=== PATIENT | female | born 1980 | race Caucasian/White ===

== ENCOUNTER 2017-04-29 07:20 | Emergency (ER) | payer BC, MEDICAID ==
[~2017-04-29] VITALS: Ht 160 cm; Wt 159.0 kg
[~2017-04-29 07:20] MED LIST: Z.0.NO CURRENT MEDS
[2017-04-29 07:21] VITALS: BP 147/76; PULSE 86; RESP 16; TEMP 97.7; O2SAT 98
[2017-04-29] MEDS ORDERED: SODIUM CHLOR 0.9% 1000 ML INJ 1,000 ML IV SCH (07:32)
--- NOTE | 2017-04-29 07:38 | PD ---
HPI Chief Complaint: Flank/Kidney Pain Time Seen by Provider: 07:28 Travel History International Travel<30 days: No Contact w/Intl Traveler<30days: No Traveled to known affect area: No History of Present Illness HPI 37 years old female complains of left flank pain and left-sided abdominal pain. Patient states that the symptoms started 4 days ago. Patient states the pain has been intermittent however worse this morning. Patient states that the pain is cramping pain and sharp pain started on the left flank area with radiation to left side abdomen. Patient denies any nausea vomiting. Patient denies any diarrhea. Patient denies any dysuria. Patient has urinary frequency. Patient denies any vaginal discharge or bleeding. Patient status post tubal ligation. On a scale of 1-10 the pain is an 8. Patient denies any history kidney stone in the past. Patient has history of ovarian cysts. PFSH Past Medical History Diminished Hearing: No ?: Not LMP: MAR 2017 Tubal Ligation: Yes Past Surgical History Section: Yes Social History Alcohol Use: No Tobacco Use: No Substance Use: No Allergies-Medications (Allergen,Severity, Reaction): Coded Allergies: No Known Allergies (Verified Allergy, Unknown, 04/29/17) Reported Meds & Prescriptions Reported Meds & Active Scripts Active No Active Prescriptions or Reported Medications Review of Systems General / Constitutional: No: Fever Eyes: No: Visual changes HENT: No: Headaches Cardiovascular: No: Chest Pain or Discomfort Respiratory: No: Shortness of Breath Gastrointestinal: Positive: Abdominal Pain Genitourinary: No: Dysuria Musculoskeletal: No: Pain Skin: No Rash Neurologic: No: Weakness Psychiatric: No: Depression Endocrine: No: Polydipsia Hematologic/Lymphatic: No: Easy Bruising Physical Exam Narrative GENERAL: Well-nourished, well-developed patient. SKIN: Focused skin assessment warm/dry. HEAD: Normocephalic. EYES: No scleral icterus. No injection or drainage. NECK: Supple, trachea midline. No JVD or lymphadenopathy. CARDIOVASCULAR: Regular rate and rhythm without murmurs, gallops, or rubs. RESPIRATORY: Breath sounds equal bilaterally. No accessory muscle use. GASTROINTESTINAL: Abdomen soft, nondistended. Moderate tenderness on palpation left flank area left side abdomen. No rebound tenderness. No mass. MUSCULOSKELETAL: No cyanosis, or edema. BACK: Nontender without obvious deformity. No CVA tenderness. Neurologic exam normal. Data Data Last Documented VS Vital Signs Date Time Temp Pulse Resp B/P (MAP) Pulse Ox O2 Delivery O2 Flow Rate FiO2 04/29/17 07:21 97.7 86 16 147/76 (99) 98 Orders Orders Complete Blood Count With Diff (04/29/17 07:32) Comprehensive Metabolic Panel (04/29/17 07:32) Urinalysis - C+S If Indicated (04/29/17 07:32) Ct Abd/Pel W/O Iv Contrast (04/29/17 07:32) Iv Access Insert/Monitor (04/29/17 07:32) Ecg Monitoring (04/29/17 07:32) Oximetry (04/29/17 07:32) Morphine Inj (Morphine Inj) (04/29/17 07:45) Ondansetron Inj (Zofran Inj) (04/29/17 07:45) Sodium Chlor 0.9% 1000 Ml Inj (Ns 1000 M (04/29/17 07:32) Sodium Chloride 0.9% Flush (Ns Flush) (04/29/17 07:45) Morphine Inj (Morphine Inj) (04/29/17 08:30) Ketorolac Inj (Toradol Inj) (04/29/17 08:30) Ed Discharge Order (04/29/17 08:19) Labs Laboratory Tests Test 04/29/17 07:10 04/29/17 07:42 Urine Color YELLOW Urine Turbidity CLEAR Urine pH 6.0 Urine Specific [place] 1.029 Urine Protein TRACE mg/dL Urine Glucose (UA) NEG mg/dL Urine Ketones NEG mg/dL Urine Occult Blood TRACE Urine Nitrite NEG Urine Bilirubin NEG Urine Urobilinogen LESS THAN 2.0 MG/DL Urine Leukocyte Esterase NEG Urine RBC 1 /hpf Urine WBC 1 /hpf Urine Squamous Epithelial Cells 3 /hpf Urine Mucus FEW /lpf Microscopic Urinalysis Comment CULT NOT INDICATED White Blood Count 6.9 TH/MM3 Red Blood Count 4.62 MIL/MM3 Hemoglobin 13.5 GM/DL Hematocrit 40.6 % Mean Corpuscular Volume 87.9 FL Mean Corpuscular Hemoglobin 29.2 PG Mean Corpuscular Hemoglobin Concent 33.2 % Red Cell Distribution Width 13.6 % Platelet Count 288 TH/MM3 Mean Platelet Volume 8.9 FL Neutrophils (%) (Auto) 63.1 % Lymphocytes (%) (Auto) 29.6 % Monocytes (%) (Auto) 5.3 % Eosinophils (%) (Auto) 1.3 % Basophils (%) (Auto) 0.7 % Neutrophils # (Auto) 4.3 TH/MM3 Lymphocytes # (Auto) 2.0 TH/MM3 Monocytes # (Auto) 0.4 TH/MM3 Eosinophils # (Auto) 0.1 TH/MM3 Basophils # (Auto) 0.0 TH/MM3 CBC Comment DIFF FINAL Differential Comment Blood Urea Nitrogen 13 MG/DL Creatinine 0.87 MG/DL Random Glucose 95 MG/DL Total Protein 7.8 GM/DL Albumin 3.8 GM/DL Calcium Level 9.0 MG/DL Alkaline Phosphatase 88 U/L Aspartate Amino Transf (AST/SGOT) 11 U/L Alanine Aminotransferase (ALT/SGPT) 19 U/L Total Bilirubin 0.5 MG/DL Sodium Level 139 MEQ/L Potassium Level 3.8 MEQ/L Chloride Level 106 MEQ/L Carbon Dioxide Level 26.7 MEQ/L Anion Gap 6 MEQ/L Estimat Glomerular Filtration Rate 74 ML/MIN [facility] Medical Decision Making Medical Screen Exam Complete: Yes Emergency Medical Condition: Yes Interpretation(s) 8:04 AM. CBC within normal limit. UA is negative. Differential Diagnosis Differential diagnosis including musculoskeletal, nephrolithiasis, pyelonephritis, ovarian cyst, colitis. Narrative Course 37 years old female with left flank pain and left-sided abdominal pain. Toradol 30 mg IV. Normal saline solution 1 25 cc an hour. Zofran 4 mg IV. Diagnosis Primary Impression: Left flank pain Patient Instructions: General Instructions Additional Instructions: Take medications as needed for pain. Follow-up with local physician. Return if worse. Med/Other Pt SpecificInfo: Prescription(s) given Scripts Methocarbamol (Robaxin) 750 Mg Tab 750 MG PO QID for Muscle Spasm, #40 TAB 0 Refills Prov: Iglesia Jauregui MD 04/29/17 Ibuprofen (Ibuprofen) 600 Mg Tab 600 MG PO TID for Pain, #60 TAB 0 Refills Prov: Iglesia Jauregui MD 04/29/17 Disposition: 01 DISCHARGE HOME Condition: Stable Iglesia Jauregui MD Apr 29, 2017 07:38
[2017-04-29] MEDS ORDERED: SODIUM CHLORIDE 0.9% FLUSH 10 ML FLUSH IV FLUSH PRN (07:45)
[2017-04-29] MEDS ORDERED: MORPHINE SULFATE 4 MG/ML INJ IV PUSH ONE (07:45)
[2017-04-29] MEDS ORDERED: ONDANSETRON HCL 4 MG/2 ML VIAL IVP ONE (07:45)
[2017-04-29 07:56] LABS: AUTOMATED NEUTROPHIL # 4.3 TH/MM3 (1.8-7.7); BASOPHIL % 0.7 % (0.0-2.0); EOSINOPHIL # 0.1 TH/MM3 (0-0.4); EOSINOPHIL % 1.3 % (0.0-4.0); HEMATOCRIT 40.6 % (35.0-46.0); HEMOGLOBIN 13.5 GM/DL (11.6-15.3); LYMPH % 29.6 % (9.0-44.0); MEAN CELL VOLUME 87.9 FL (80.0-100.0); MEAN CORPUSCULAR HEMOGLOBIN 29.2 PG (27.0-34.0); MEAN CORPUSCULAR HGB CONC 33.2 % (32.0-36.0); MEAN PLATELET VOLUME 8.9 FL (7.0-11.0); MONO % 5.3 % (0.0-8.0); MONOCYTE # 0.4 TH/MM3 (0-0.9); NEUT % 63.1 % (16.0-70.0); PLATELET COUNT 288 TH/MM3 (150-450); RED BLOOD COUNT 4.62 MIL/MM3 (4.00-5.30); RED CELL DISTRIBUTION WIDTH 13.6 % (11.6-17.2); WHITE BLOOD COUNT 6.9 TH/MM3 (4.0-11.0)
[2017-04-29 08:03] LABS: BILIRUBIN, URINE NEG (NEG); BLOOD, URINE TRACE (NEG); GLUCOSE,URINE NEG (NEG); KETONE, URINE NEG (NEG); MUCUS URINE FEW /lpf (OCC); NITRITE,URINE NEG (NEG); SQUAMOUS EPITHELIAL CELL URINE 3 /hpf (0-5); URINE COLOR YELLOW (YELLW/STRAW); URINE LEUKOCYTE ESTERASE NEG (NEG)
--- NOTE | 2017-04-29 08:09 | RADRPT ---
EXAM DATE/TIME: 04/29/2017 07:46 [place] COMPARISON: No previous studies available for comparison. INDICATIONS : Left flank and left side abdominal pain. ORAL CONTRAST: No oral contrast ingested. RADIATION DOSE: 33.54 CTDIvol (mGy) ; Patient body habitus MEDICAL HISTORY : Ovarian cysts. SURGICAL HISTORY : section. Tubal ligation. ENCOUNTER: Initial ACUITY: 4 - 6 days PAIN SCALE: 8/10 LOCATION: Left flank TECHNIQUE: Volumetric scanning of the abdomen and pelvis was performed. Using automated exposure control and ad justment of the mA and/or kV according to patient size, radiation dose was kept as low as reasonably achievable to obtain optimal diagnostic quality images. DICOM format image data is available electro nically for review and comparison. FINDINGS: LOWER LUNGS: The visualized lower lungs are clear. LIVER: Mild hepatomegaly is noted. Homogeneous density without lesion. There is no dilation of the biliary tree. No calcified gallstones. SPLEEN: Mild splenomegaly is noted. PANCREAS: Within normal limits. KIDNEYS: Normal in size and shape. There is no mass, stone, or hydronephrosis. ADRENAL GLANDS: Within normal limits. VASCULAR: There is no aortic aneurysm. BOWEL/MESENTERY: The stomach, small bowel, and colon demonstrate no acute abnormality. There is no free intraperitone al air or fluid. ABDOMINAL WALL: Within normal limits. RETROPERITONEUM: There is no lymphadenopathy. BLADDER: No wall thickening or mass. REPRODUCTIVE: 2.6 cm left ovarian cyst is noted. INGUINAL: There is no lymphadenopathy or hernia. MUSCULOSKELETAL: Minimal scoliosis of the lumbar spine is noted. CONCLUSION: 1. No acute obstructive uropathy. 2. Mild hepatosplenomegaly. 3. 2.6 cm left ovarian cyst. 4. Minimal scoliosis of the lumbar spine. Surya Ramirez MD on April 29, 2017 at 8:03 Board Certified Radiologist. This report was verified electronically.
[2017-04-29 08:13] LABS: ALBUMIN 3.8 GM/DL (3.4-5.0); ALT (GPT) 19 U/L (10-53); AST (GOT) 11 U/L (15-37); BICARBONATE 26.7 MEQ/L (21.0-32.0); BLOOD UREA NITROGEN 13 MG/DL (7-18); CHLORIDE 106 MEQ/L (98-107); CREATININE 0.87 MG/DL (0.50-1.00); GLOMERULAR FILTRATION RATE 74 ML/MIN (>89); GLUCOSE,RANDOM 95 MG/DL (74-106); SODIUM (NA) 139 MEQ/L (136-145)
[2017-04-29 08:15] LABS: ALKALINE PHOSPHATASE 88 U/L (45-117); TOTAL BILIRUBIN ADULT 0.5 MG/DL (0.2-1.0); TOTAL PROTEIN 7.8 GM/DL (6.4-8.2)
[2017-04-29] MEDS ORDERED: IBUP-232 PO (08:22)
[2017-04-29] MEDS ORDERED: ROBA750T PO (08:22)
[2017-04-29] MEDS ORDERED: KETOROLAC TROMETHAMINE 30 MG/ML (IVP) VIAL IV PUSH ONE (08:30)
[2017-04-29] MEDS ORDERED: MORPHINE SULFATE 2 MG/ML INJ IV PUSH ONE (08:30)
== END 2017-04-29 08:43 | disposition home or self-care (01) ==
LOC: NEPE 07:20
DX: R10.9 Unspecified abdominal pain (principal); R16.2 Hepatomegaly with splenomegaly, not elsewhere classified; N83.202 Unspecified ovarian cyst, left side; M41.9 Scoliosis, unspecified
CPT/HCPCS: 74176; 80053; 81001; 85025